=== PATIENT | female | born 1945 | race Caucasian/White ===

== ENCOUNTER → 2017-01-08 18:55 | Outpatient (CLI) | payer MEDICARE ==
[2014-01-13 07:41] VITALS: BMI 21.9
[~2017-01-08 18:55] MED LIST: ACETAMINOPHEN500 M1 PO; ATIVAN1 MG; CRESTOR20 MG; CYCLOBENZAPRINE10 MG PO; LIBRAX CAPSULE1 CAP; LOFIBRA134 MG; LYRICA75 MG; NEURONTIN 300300 MG; NEXIUM40 MG; PREMARIN0.625 MG PO; PRILOSEC20 MG PO; TOPROL XL25 MG; ZANAFLEX4 MG
== END | disposition home or self-care (01) ==
LOC: D.MAMMO 15:45
DX: Z12.31 Encounter for screening mammogram for malignant neoplasm of breast (principal)

== ENCOUNTER → 2017-02-04 17:21 | Outpatient (CLI) | payer MEDICARE ==
[2014-01-13 07:41] VITALS: BMI 21.9
== END | disposition home or self-care (01) ==
LOC: D.MAMMO 13:30
DX: R92.8 Other abnormal and inconclusive findings on diagnostic imaging of breast (principal)

== ENCOUNTER → 2017-12-09 12:46 | Outpatient (CLI) | payer MEDICARE ==
[2014-01-13 07:41] VITALS: BMI 21.9
== END | disposition home or self-care (01) ==
LOC: D.MRI 12:46
DX: M48.02 Spinal stenosis, cervical region (principal)

== ENCOUNTER 2018-04-15 05:10 | Day surgery (SDC) | payer MEDICARE ==
[2018-04-14 14:22] LABS: HEMATOCRIT 38.4 % (36.0-48.0); HEMOGLOBIN 13.1 g/dL (12-16); MCH 34.6 pg (26.0-34.0); MCHC 34.1 g/dL (31.0-37.0); MCV 101.3 fL (80.0-100.0); MEAN PLATELET VOLUME 10.4 fL (7.4-10.4); RBC 3.79 10x6/uL (4.00-5.40); WBC 6.3 10x3/uL (4.8-10.8)
[~2018-04-15] VITALS: Ht 167.6 cm; Wt 60.0 kg
--- NOTE | ~2018-04-15 | OP ---
PATIENT NAME: DERRICK MAS MEDICAL RECORD: [id number] :47 LOCATION:D.OPS ADMISSION DATE: SURGEON: VERNA HIDALGO MD DATE OF OPERATION: 04/15/2018 PREOPERATIVE DIAGNOSES: Osteophyte formation and disc herniation at C5-C6. POSTOPERATIVE DIAGNOSES: Osteophyte formation and disc herniation at C5-C6. PROCEDURES: Anterior cervical discectomy and fusion at C5-C6 with Zavation anterior cervical plate and screws. SURGEON: Verna Hidalgo MD DESCRIPTION OF TECHNIQUE: After induction of general endotracheal anesthesia, the patient was positioned supine on the operating table. Neck was prepped and draped in usual sterile fashion. A transverse skin incision was carried out from the midline to the sternocleidomastoid muscle. The platysma was divided with Bovie cautery and then, using blunt and sharp dissection with Metzenbaum scissors, I proceeded in the avascular plane medial to the carotid sheath. Next, C5-C6 interspace was identified with fluoroscopic x-ray and spinal needle. The longus colli muscles were elevated from bodies of C5 and C6. Hinckley distracting pins were placed in the bodies of C5 and C6. A self-retaining retractor was placed deep to the longus colli muscles. The disc space was incised under distraction. Disc drill material was removed with pituitary rongeurs and curettes. Next, the posterior longitudinal ligament was removed with Cloward rongeurs. The dura was decompressed well. Following this, a PEEK interbody cage was placed in disc space under distraction. Next, a Zavation anterior cervical plate and screws were used to span the C5-C6 interspace, was a midline plate. The locking cams were tightened down over the screw heads. Good position of the hardware was confirmed with fluoroscopic x-ray. Meticulous hemostasis was maintained throughout the wound. Wounds were irrigated with copious amounts of Ancef irrigant solution. The platysma and subdermal layer were closed with interrupted 3-0 Vicryl suture. The skin was reapproximated with Steri-Strips and benzoin. A sterile dressing was applied to the wound. The patient was awakened in good condition and taken to recovery. All counts were reported as correct. Estimated blood loss was minimal. TRANSINT:[id number] Voice Confirmation ID: [id number] DOCUMENT ID: [id number] VERNA HIDALGO MD CC: [id number] DICTATION DATE: 04/30/18 1240 FUNDRAISING CONSULTANT: 04/30/18 1613 [facility] 04/16/18 [place] [id number] [place] [id number]
[2018-04-15] MEDS ORDERED: ZANAFLEX4 MG (05:53)
[2018-04-15 05:54] VITALS: BP 117/66; BMI 21.3
[2018-04-15 10:56] VITALS: BP 144/72
[2018-04-15] MEDS ORDERED: FENOFIBRATE134 MG PO (14:36)
[2018-04-15] MEDS ORDERED: PREMARIN0.625 MG PO (14:38)
[2018-04-15] MEDS ORDERED: TOPROL XL100 MG PO (14:40)
[2018-04-15] MEDS ORDERED: NEXIUM20 MG PO ×2 (14:41→14:42)
[2018-04-15] MEDS ORDERED: ZANTAC300 MG PO (14:43)
[2018-04-15] MEDS ORDERED: ATIVAN2 MG PO (14:44)
[2018-04-15] MEDS ORDERED: ACETAMINOPHEN500 M1 PO (14:47)
[2018-04-15 15:05] VITALS: BP 135/62; Ht 167.6 cm; Wt 60.0 kg
[2018-04-15 16:41] VITALS: BP 132/51
[2018-04-15 20:00] VITALS: BP 135/56
[2018-04-16 04:00] VITALS: BP 125/45
[2018-04-16 08:49] VITALS: BP 131/50
[2018-04-16 12:23] VITALS: BP 153/57
[2018-04-16] MEDS ORDERED: NORCO 10-325 TA1 TAB PO (13:48)
== END 2018-04-16 14:32 | disposition home or self-care (01) ==
LOC: D.OPS 05:10 → D.MS 05:10 → D.PAN 07:30 → D.OPS 07:30 → D.MS 10:16 → D.OPS 04-16 14:32
PROVIDERS: Anesthesiology
DX: M50.222 Other cervical disc displacement at C5-C6 level (principal); M25.78 Osteophyte, vertebrae; I10 Essential (primary) hypertension; Z87.891 Personal history of nicotine dependence

== ENCOUNTER 2019-09-02 08:18 | Day surgery (SDC) | payer MEDICARE ==
[2019-09-01 14:07] LABS: HEMATOCRIT 40.4 % (36.0-48.0); HEMOGLOBIN 13.6 g/dL (12-16); MCH 34.3 pg (26.0-34.0); MCHC 33.7 g/dL (31.0-37.0); MEAN PLATELET VOLUME 10.1 fL (7.4-10.4); RBC 3.96 10x6/uL (4.00-5.40); RDW 12.3 % (11.5-14.5); WBC 6.7 10x3/uL (4.8-10.8)
[~2019-09-02] VITALS: Ht 170.2 cm; Wt 59.9 kg
[~2019-09-02 08:18] MED LIST changes: +ATIVAN2 MG PO; +FENOFIBRATE134 MG PO; +NEXIUM20 MG PO; +NORCO 10-325 TA1 TAB PO; +PEPCID AC20 MG PO; +TOPROL XL100 MG PO; +TYLENOL W/CODEI1 TAB PO; +ZANAFLEX4 MG PO; +ZANTAC300 MG PO; +ZYRTEC10 MG PO
[2019-09-02 09:13] VITALS: BP 139/54; Ht 170.2 cm; Wt 59.9 kg
[2019-09-02] MEDS ORDERED: TYLENOL W/CODEI1 TAB PO (12:53)
[2019-09-02] MEDS ORDERED: VISTARIL50 MG PO (12:54)
--- NOTE | 2019-09-02 14:24 | NUR ---
DC INSTRUCTIONS GIVEN TO PT. STATES UNDERSTANDING. PT VOIDED. DC'D IV CATH FULLY INTACT.
--- NOTE | 2019-09-02 14:31 | NUR ---
PT LEFT UNIT VIA WC AT 1432
--- NOTE | 2019-09-05 08:12 | OP ---
PATIENT NAME: DERRICK CASTILLO MEDICAL RECORD: [id number] :47 LOCATION:D.OPS ADMISSION DATE: SURGEON: TODD STEPHENSON DO DATE OF OPERATION: 09/02/2019 PROCEDURE PERFORMED: Right shoulder arthroscopy with subacromial decompression, distal clavicle excision, labral debridement, biceps tenodesis and rotator cuff repair using Regeneten as well as right endoscopic carpal tunnel release. PREOPERATIVE DIAGNOSIS: Right carpal tunnel syndrome, partial rotator cuff tear of the supraspinatus, AC joint arthritis, subacromial impingement, and SLAP tear. POSTOPERATIVE DIAGNOSIS: Right carpal tunnel syndrome, partial rotator cuff tear of the supraspinatus, AC joint arthritis, subacromial impingement, and SLAP tear. INDICATIONS: Ms. Castillo is a 73-year-old female who has had right shoulder pain for quite some time as well as hand numbness. She had a nerve conduction study that did not reveal numbers exactly for carpal tunnel syndrome, although she did have all the physical signs of it, and due to that fact we told her that we need to release carpal tunnel in there and she had an MRI of the right shoulder, which showed a SLAP tear and a paralabral cyst indicating a tear in the labrum as well as AC joint arthritis and bursitis in the subacromial space and a partial thickness bursal-sided rotator cuff tear. I informed that looking at the rotator cuff tear was more than 50% torn and we would put a patch over it and repair it if we had to. She was okay with that and aware of the risks including infection, bleeding, damage to the nerves and vessels, specifically the median nerve for the carpal tunnel release, need for further surgery, continued pain, loss of motion of the shoulder and she signed the consent. SURGEON: Todd Stephenson DO DESCRIPTION OF PROCEDURE: The patient received a block by anesthesia in preoperative area. She was taken to the operative suite, laid in the left lateral decubitus position with the right arm up. We then prepped and draped the right shoulder and right upper extremity. A timeout was performed and everyone was in agreeance with the correct side, site, patient and procedure. She received 900 mg clindamycin prior to starting. We then inflated the shoulder joint with 60 mL of normal saline through the posterior portal through an 18-gauge spinal needle. I then established a portal with an 11-blade scalpel and trocar was entered in the shoulder joint. Anterior portal was then established using 18-gauge spinal needle and 11-blade scalpel. The SLAP tear was seen. The biceps tendon was cut. The articular side of the supraspinatus tendon was in good repair as well as infraspinatus and subscapularis. There was labral tear noted and the joint was good. There was no cartilage loss, nothing in the inferior gutter. We then went to the subacromial space and established a lateral portal using 18-gauge spinal needle and 11-blade scalpel. I then brought in a shaver and cleaned up the rotator cuff. I saw more than 50% thickness tear in the bursal side of the supraspinatus. Planned to put a Regeneten patch on, then did a subacromial decompression removing some of the distal lateral acromion and then AC joint also was cleaned up and the distal clavicle was excised opening up the AC joint 7 mm. The labrum was debrided prior to going out of the joint. Then further bursectomy was done on the bursal side and the lateral portal was then opened further and with [facility], OPERATIVE REPORT [id number] TIPPIT,DERRICK SARAH dissection was made down to the tear. The tear was identified and the Regeneten patch was put on using piteer medially and bone pieter laterally covering it nicely and then went to the anterior humerus and made an incision and dissected down to the long head of the biceps tendon, pulled it out through the incision, put a JuggerLoc anchor in, and once the JuggerLoc anchor was put in, the long head of the biceps tendon was pulled up through the loop and cinched down. We then cut the loop and then tied the sutures with a free needle and went back through the long head of the biceps tendon and tied this down. The excess tendon suture was then cut and this was irrigated. The sites were closed by Jorge Sharpe, certified surgical welder first class with 2-0 Vicryl in inverted interrupted fashion on the open rotator cuff as well as the biceps tenodesis and 4-0 Monocryl ran on the skin. The portal sites closed with 4-0 Monocryl in an inverted interrupted fashion. Dermabond glue placed on all of them. At that time, I addressed the carpal tunnel and moving the hand in a position putting a sterile tourniquet on, the right upper extremity was exsanguinated with an Esmarch and tourniquet was inflated to 250 mmHg and was up for approximately 11 minutes. The incision was then centered over the palmaris longus tendon with Ragnell's dissected down to the median nerve. Fascia was released from distal to proximal over the median nerve and then entered into the carpal tunnel itself with the dilators. Sheath was then brought in. Once we got good visualization of the transverse carpal ligament, the rasp and probe were brought in to ensure that there was no transligamentous nerve branch. The knife was then brought in and cut the transverse carpal ligament and fat herniating down into the view of the scope. I then removed the scope and the knife and then the sheath and through direct visualization and a Ragnell any remaining fibers of the transverse carpal ligament. The tourniquet was then let down. The site was injected with 10 mL of 0.25% Marcaine with epinephrine. The site was then closed by Jorge Sharpe, certified surgical aides teacher with 5-0 Monocryl in inverted interrupted fashion. Steri-Strips, Adaptic, 4 x 4's, Kerlix, and Coban were lightly wrapped on it. Telfa and Tegaderm were then put on the shoulder incision site. She was awakened and taken to recovery in stable condition. BLOOD LOSS: Minimal. COMPLICATIONS: None. TRANSINT:[id number] Voice Confirmation ID: [id number] DOCUMENT ID: [id number] TODD STEPHENSON DO at 0812 CC: [id number] DICTATION DATE: 09/02/19 1306 [employer] SET UP OPERATOR: 09/02/19 2109 [facility] 09/02/19 [facility] [address] [place] [address]
== END 2019-09-02 14:32 | disposition home or self-care (01) ==
LOC: D.OPS 08:18
PROVIDERS: Anesthesiology; ATTEND Orthopaedic Surgery
DX: G56.01 Carpal tunnel syndrome, right upper limb (principal); M75.111 Incomplete rotator cuff tear or rupture of right shoulder, not specified as traumatic; M19.019 Primary osteoarthritis, unspecified shoulder; M25.811 Other specified joint disorders, right shoulder; S43.431A Superior glenoid labrum lesion of right shoulder, initial encounter; X58.XXXA Exposure to other specified factors, initial encounter; K21.9 Gastro-esophageal reflux disease without esophagitis